=== PATIENT | female | born 1940 | race Caucasian/White ===

== ENCOUNTER → 2016-09-09 | Outpatient (CLI) | payer MEDICARE ==
[~2016-09-09] MED LIST: ATOR10 PO; COMBAER INH; CYMB60CA PO; ESZO3 PO; HYDR10TA16 PO; LEVO.125 PO; MONT10TA2 PO; OXYB5TAB PO
--- NOTE | 2016-09-13 11:34 | RSPPFT ---
DATE OF PROCEDURE: 09/09/16 COMMENTS: VOLUMES DYNAMIC: FVC mildly reduced; FEV1 moderately reduced. STATIC: TLC normal; RV moderately increased; FRC normal. FLOWS: FEV1% moderately reduced; FEF 25-75 severely reduced. DIFFUSION: Normal. FLOW VOLUME LOOP: Pattern of variable intrathoracic airways obstruction. IMPRESSION: Moderately severe obstructive ventilatory defect with hyperinflation and significant improvement post-bronchodilator. Airways resistance is increased. Diffusion capacity is normal.
== END ==
LOC: HRSP 07:26
PROVIDERS: ATTEND Internal Medicine
DX: J44.9 Chronic obstructive pulmonary disease, unspecified (principal)
CPT/HCPCS: 94060; 94620; 94726; 94729